=== PATIENT | female | born 1990 | race Caucasian/White ===

== ENCOUNTER 2016-11-24 15:08 | Emergency (ER) | payer MEDICAID ==
[~2016-11-24] VITALS: Ht 165.1 cm; Wt 103.4 kg
[2016-11-24 15:17] VITALS: BP 149/95; PULSE 101; RESP 16; TEMP 98.5; O2SAT 97
[2016-11-24 17:05] LABS: BILIRUBIN,URINE NEGATIVE (NEGATIVE); CLARITY/URINE SL CLOUDY (CLEAR); GLUCOSE,URINE NEGATIVE (NEGATIVE); KETONES,URINE NEGATIVE (NEGATIVE); NITRITE, URINE NEGATIVE (NEGATIVE); PROTEIN URINE NEGATIVE (NEGATIVE); UROBILINOGEN,URINE 0.2 (0.2-1.0)
[2016-11-24 17:22] LABS: BLOOD, URINE TRACE (NEGATIVE); COLOR,URINE STRAW (YELLOW); LEUKOCYTE ESTERASE ,URINE 1+ (NEGATIVE)
[2016-11-24 17:25] LABS: BACTERIA,URINE MODERATE /HPF (None Seen); RBC,URINE NONE SEEN /HPF (0-3)
[2016-11-24 17:26] LABS: MUCUS,URINE None Seen /LPF (None Seen)
[2016-11-24] MEDS ORDERED: KETOROLAC TROMETHAMINE 60 MG/2 ML VIAL IM ONE (17:30)
[2016-11-24 17:56] VITALS: BP 132/84; PULSE 88; RESP 17; TEMP 98.3; O2SAT 99
== END 2016-11-24 17:56 | disposition home or self-care (01) ==
LOC: SED 15:08
DX: M54.5 Low back pain (principal); G89.29 Other chronic pain; N39.0 Urinary tract infection, site not specified; R31.9 Hematuria, unspecified; R03.0 Elevated blood-pressure reading, without diagnosis of hypertension
CPT/HCPCS: 81000; 81025; 87086; 87186; 96372; 99284; J1885

== ENCOUNTER 2017-02-06 17:00 | Emergency (ER) | payer MEDICAID ==
[~2017-02-06] VITALS: Ht 165.1 cm; Wt 104.3 kg
--- NOTE | 2017-02-06 17:02 | NUR ---
Pt triaged, EKG obtained, MD aware, pt on stable condition, VS WNL, ambulatory, no SOB .
[2017-02-06 17:07] VITALS: BP_SYST 112
--- NOTE | 2017-02-06 17:20 | NUR ---
Dr Larose examined patient in triage
[2017-02-06 17:44] LABS: BASOPHILS # (AUTO) 0.1 K/uL (0.0-0.2); BASOPHILS % (AUTO) 0.7 % (0.0-2.0); EOSINOPHILS # (AUTO) 0.5 K/uL (0.0-0.4); EOSINOPHILS % (AUTO) 5.2 % (0.0-4.0); HEMATOCRIT 41.8 % (36-48); HEMOGLOBIN 13.8 g/dL (12.0-16.0); LYMPHOCYTES # (AUTO) 2.8 K/uL (1.0-5.5); LYMPHOCYTES % (AUTO) 26.9 % (20.5-51.5); MEAN CORPUSCULAR HEMOGLOBIN 27 pg (27-31); MEAN CORPUSCULAR HGB CONC 33 % (32-36); MEAN CORPUSCULAR VOLUME 81 fL (79.0-98.0); MONOCYTES # (AUTO) 0.5 K/uL (0.0-1.0); MONOCYTES % (AUTO) 4.8 % (1.7-9.3); NEUTROPHILS # (AUTO) 6.5 K/uL (1.8-7.7); NEUTROPHILS % (AUTO) 62.4 % (40.0-70.0); PLATELET COUNT (AUTO) 349 K/uL (130-430); RED BLOOD CELL COUNT(AUTO) 5.19 MIL/uL (4.2-6.2); RED CELL DISTRIBUTION WIDTH 14.5 % (9.0-15.0); WHITE BLOOD COUNT (AUTO) 10.4 K/uL (4.8-10.8)
--- NOTE | 2017-02-06 17:50 | NUR ---
Patient brought to [facility] in hallway. Stable condition, alert and oriented x4. States that she began feeling generalized chest pain around 4AM this morning (still persists) states that it feels "like an elephant is sitting on her chest", non-radiating states is unsure how to furhter describe the pain. States she felt short of breath at times, denies shortness of breath now, none noted. Denies nausea/vomiting. No other complaints/injuries per patient or noted.
[2017-02-06 17:54] LABS: POTASSIUM 4.8 mmol/L (3.5-5.1)
[2017-02-06 17:55] LABS: CALCIUM 9.4 mg/dL (8.4-11.0); CREATININE 0.77 mg/dL (0.55-1.30)
[2017-02-06 17:57] LABS: PROTHROMBIN TIME 10.4 SECS (9.5-12.5)
[2017-02-06 17:59] LABS: TOTAL BILIRUBIN 0.2 mg/dL (0.0-1.0); TOTAL PROTEIN, SERUM 7.9 g/dL (6.4-8.3)
[2017-02-06] MEDS ORDERED: LORazepam 2 MG/ML VIAL (FOR ER USE) IM ONE (18:15)
[2017-02-06] MEDS ORDERED: KETOROLAC TROMETHAMINE 60 MG/2 ML VIAL IM ONE (18:15)
--- NOTE | 2017-02-06 18:30 | NUR ---
Dr Larose aware that patient refused Ativan
[2017-02-06 18:51] LABS: BILIRUBIN,URINE NEGATIVE (NEGATIVE); BLOOD, URINE NEGATIVE (NEGATIVE); CLARITY/URINE SL HAZY (CLEAR); COLOR,URINE YELLOW (YELLOW); GLUCOSE,URINE NEGATIVE (NEGATIVE); KETONES,URINE NEGATIVE (NEGATIVE); LEUKOCYTE ESTERASE ,URINE TRACE (NEGATIVE); NITRITE, URINE NEGATIVE (NEGATIVE); PROTEIN URINE NEGATIVE (NEGATIVE); UROBILINOGEN,URINE 0.2 (0.2-1.0)
--- NOTE | 2017-02-06 19:02 | NUR ---
Patient given written and verbal discharge instructions and verbalizes understanding. ER MD discussed with patient the results and treatment provided.Patient in stable condition. ID arm band removed. Patient educated on pain management and to follow up with PMD within 2 days. Opportunity for questions provided and answered.
[2017-02-06 19:03] VITALS: BP_SYST 115
[2017-02-06 19:03] LABS: RBC,URINE 0-3 /HPF (0-3)
[2017-02-06 19:04] LABS: BACTERIA,URINE FEW /HPF (None Seen); MUCUS,URINE None Seen /LPF (None Seen)
== END 2017-02-06 19:03 | disposition home or self-care (01) ==
LOC: SED 17:00
DX: R07.9 Chest pain, unspecified (principal); F41.9 Anxiety disorder, unspecified; F32.9 Major depressive disorder, single episode, unspecified
CPT/HCPCS: 36415; 71010; 80053; 80061; 81000; 81025; 83880; 84484; 85025; 85610; 85730; 87086; 93005; 96372; 99285; J1885; J2060